=== PATIENT | female | born 1960 | race Caucasian/White ===

== ENCOUNTER → 2017-02-06 | Outpatient (CLI) | payer MEDICAID ==
[~2017-02-06] MED LIST: ATORVASTATIN CA80 MG PO; CARVEDILOL 1212.5 MG PO; DIAZEPAM5 M1 PO; DICYCLOMINE HCL20 MG PO; LOPRESSOR 25MG.25 MG PO; LOSARTAN POTASS50 MG PO; OMEPRAZOLE40 MG PO; PERCOCET 5/3251 EACH PO; ZOFRAN ODT4 MG PO
[2017-02-06 16:38] LABS: AMPHETAMINES/METAMPHETAMINES NEGATIVE ng/mL (<1000)
[2017-02-12 03:35] LABS: Alprazolam Negative (Cutoff=100); Benzodiazepines Positive ng/mL (Cutoff=100); Clonazepam Negative (Cutoff=100); Flurazepam Negative (Cutoff=100); Lorazepam Negative (Cutoff=100); Midazolam Negative (Cutoff=100); Temazepam Positive (.); Triazolam Negative (Cutoff=100)
== END ==
LOC: LAB 15:51
PROVIDERS: Physician Assistant
DX: Z79.899 Other long term (current) drug therapy (principal)
CPT/HCPCS: G0480

== ENCOUNTER → 2017-04-05 | Outpatient (CLI) | payer MEDICAID ==
--- NOTE | 2017-04-05 10:01 | CARDIOVASCULAR REPORT ---
"Cerebrovascular Exam Indications: Follow-up carotid 433.10. IMPRESSIONS 1. The bilateral vertebral arteries are patent with normal antegrade flow. 2. Study suggests 20-49% stenosis involving the left internal carotid artery. No change from the study of 11-Feb-2016. 3. Study suggests less than 20% stenosis involving the right internal carotid artery. Disease regression from the study of 11-Feb-2016. Labs, prior tests, procedures, and surgery: Right carotid stent (April 2016). Labs, prior tests, procedures, and surgery: Right carotid stent (April 2016). Carotid duplex study. Complete study and Doppler flow study including spectral analysis, color and jacobsen scale imaging. Height: Height: 172.7cm. Height: 68in. Weight: Weight: 111.6kg. Weight: 245.5lb. Body mass index: BMI: 37.4kg/m^2. Body surface area: BSA: 2.36m^2. Location: Vascular laboratory. Patient status: Outpatient. Tables: Arterial flow: + +--------+--------+ |Location |V sys |V ed | + +--------+--------+ |Right CCA - proximal|95.9cm/s|29.9cm/s| + +--------+--------+ |Right CCA - distal |78.9cm/s|34.2cm/s| + +--------+--------+ |Right ECA |363cm/s |--------| + +--------+--------+ |Right ICA - proximal|101cm/s |37cm/s | + +--------+--------+ |Right ICA - mid |119cm/s |48cm/s | + +--------+--------+ |Right ICA - distal |92.5cm/s|31.4cm/s| + +--------+--------+ |Right vertebral |33.9cm/s|--------| + +--------+--------+ |Left CCA - proximal |98.7cm/s|25.1cm/s| + +--------+--------+ |Left CCA - distal |68.5cm/s|20.7cm/s| + +--------+--------+ |Left ECA |188cm/s |--------| + +--------+--------+ |Left ICA - proximal |98.7cm/s|35.8cm/s| + +--------+--------+ |Left ICA - mid |145cm/s |48.7cm/s| + +--------+--------+ |Left ICA - distal |147cm/s |49.5cm/s| + +--------+--------+ |Left vertebral |24.1cm/s|--------| + +--------+--------+ Velocity ratios: + + + + + + | |Right, V sys|Right, V ed|Left, V sys|Left, V ed| + + + + + + |Max ICA/dist CCA|1.51 |1.4 |2.15 |2.39 | + + + + + + (Report amended ) Electronically signed by: Vu Lane [id number]"
--- NOTE | 2017-04-06 13:25 | RADIOLOGY REPORT PS360 ---
History and Indications: Coronary artery disease, status post bypass surgery, hypertension, hyperlipidemia, tobacco use, family history, chest pain, shortness of breath and palpitations Procedure: Patient received a 0.4 mg of Lexiscan, resting heart rate was 70 bpm, resting blood pressure 139/63, with Lexiscan maximum heart rate achieved was 79 bpm which is less than 85% of the maximum predicted heart rate and a blood pressure was 134/74. The scan patient complained of shortness of breath and stomach discomfort. Electrocardiogram: Resting electrocardiogram showed sinus rhythm right bundle branch block, with Lexiscan there is less than 1.[address] segment depression noted from the baseline EKG. The EKG portion of the Lexiscan is nondiagnostic. Cardiac stress and resting SPECT images: Cardiac stress and rest SPECT images were obtained using technetium 99 Myoview 10.2 mCi at rest, and 31.9 mCi at stress, gated SPECT further analysis of segmental wall motion and calculation of the ejection fraction also done. Cardiac stress and rest SPECT images show uniform myocardial activity without any segmental perfusion abnormality, computer derived ejection fraction is over 65% with no obvious regional wall motion abnormality, right ventricle is moderately enlarged with normal contractility. Conclusion: 1. The EKG portion of the Lexiscan Myoview is nondiagnostic 2. No obvious scintigraphic evidence of reversible ischemia seen, computer derived ejection fraction is 65% with no obvious regional wall motion abnormality, right ventricle is moderately enlarged with normal contractility.
== END ==
LOC: RT 03-27 10:15 → RAD 03-27 11:30 → RT 09:06
DX: R07.9 Chest pain, unspecified (principal); I65.23 Occlusion and stenosis of bilateral carotid arteries; I20.9 Angina pectoris, unspecified; I25.10 Atherosclerotic heart disease of native coronary artery without angina pectoris; I10 Essential (primary) hypertension; I25.810 Atherosclerosis of coronary artery bypass graft(s) without angina pectoris; E78.5 Hyperlipidemia, unspecified
CPT/HCPCS: A9502; J2785